=== PATIENT | female | born 1965 ===

== ENCOUNTER 2018-03-16 11:12 | Emergency (ER) | payer OTHER ==
[2018-03-16 11:29] VITALS: TEMP 98.3
[2018-03-16] MEDS ORDERED: Naproxen 500 MG TAB PO STA (12:20)
--- NOTE | 2018-03-16 12:25 | ED PDOC ---
HPI: Back Time Seen by Provider: 03/16/18 11:14 Chief Complaint (Nursing): Back Pain Chief Complaint (Provider): Left sided back pain after fall History Per: Patient History/Exam Limitations: no limitations Onset/Duration Of Symptoms: Days Current Symptoms Are (Timing): Still Present Quality Of Discomfort: Sharp Severity: Moderate Additional Complaint(s): 52 yo female with thyroid disease presents for evaluation of left middle back pain after a fall yesterday. Pt states that she slipped in bathroom and hit her back on toilet. No LOC. PT took motrin last night. No mediations today for pain. Pain localized. worse with movement or deep breathing. Past Medical History Reviewed: Historical Data, Nursing Documentation, Vital Signs Vital Signs: Last Vital Signs Temp 98.3 F 03/16/18 11:28 Pulse 74 03/16/18 11:28 Resp 18 03/16/18 11:28 BP 116/74 03/16/18 11:28 Pulse Ox 98 03/16/18 11:28 - Medical History PMH: Hypothyroidism - Surgical History Surgical History: No Surg Hx - Family History Family History: States: No Known Family Hx - Living Arrangements Living Arrangements: With Family - Social History Current smoker - smoking cessation education provided: No - Allergies Allergies/Adverse Reactions: Allergies Allergy/AdvReac Type Severity Reaction Status Date / Time No Known Allergies Allergy Verified 03/16/18 11:33 Review of Systems ROS Statement: Except As Marked, All Systems Reviewed And Found Negative Constitutional: Negative for: Fever, Chills Respiratory: Negative for: SOB with Exertion Musculoskeletal: Positive for: Back Pain Physical Exam - Reviewed Nursing Documentation Reviewed: Yes Vital Signs Reviewed: Yes - Physical Exam Appears: Positive for: Well, Non-toxic, No Acute Distress Head Exam: Positive for: ATRAUMATIC, NORMAL INSPECTION, NORMOCEPHALIC Skin: Positive for: Normal Color, Warm, DRY Eye Exam: Positive for: Normal appearance ENT: Positive for: Normal ENT Inspection Neck: Positive for: Normal Cardiovascular/Chest: Positive for: Regular Rate, Rhythm Respiratory: Positive for: Normal Breath Sounds. Negative for: Accessory Muscle Use, Respiratory Distress Back: Positive for: Normal Inspection Extremity: Positive for: Normal ROM, Tenderness (Left posterior ribs ). Negative for: Deformity, Swelling Neurologic/Psych: Positive for: Alert, Oriented - ECG O2 Sat by Pulse Oximetry: 98 Pulse Ox Interpretation: Normal Medical Decision Making Medical Decision Making: XR: Without acute abnormalities as read by radiologist. Disposition - Clinical Impression Clinical Impression: Rib contusion - Patient ED Disposition Is Patient to be Admitted: No - Disposition Referrals: Phillip Leonardo MD [Primary Care Provider] - Disposition: Routine/Home Disposition Time: 13:27 Condition: STABLE Instructions: Contusion (DC) Forms: [facility] (Arabic) Print Language: CONGOLESE
[2018-03-16] MEDS ORDERED: Naproxen 500 MG TAB PO ONE (12:37)
--- NOTE | 2018-03-16 12:56 | RAD ---
Date of service: 03/16/2018 PROCEDURE: Radiographs of the Chest and Left Ribs. HISTORY: left posterior rib pain after fall COMPARISON: None available. TECHNIQUE: Frontal radiograph of the chest and multiple oblique radiographs of the left ribs were obtained. FINDINGS: LEFT RIBS: No fracture or focal lesion visualized. LUNGS: Clear. Aorta is normal in size. Trachea is grossly midline. Clavicles are intact. Yet PLEURA: No pneumothorax or pleural fluid. CARDIOVASCULAR: Normal sized heart. No pulmonary vascular congestion. OTHER FINDINGS: None. IMPRESSION: Unremarkable radiographs of the chest and left ribs. No left rib fracture. No evidence of focal infiltrate or pneumothorax.
[2018-03-16 13:55] VITALS: BP 121/73; PULSE 76; RESP 16; O2SAT 97
== END 2018-03-16 13:55 | disposition home or self-care (01) ==
LOC: H.ER 11:12
DX: S20.219A Contusion of unspecified front wall of thorax, initial encounter (principal); W19.XXXA Unspecified fall, initial encounter; Y92.89 Other specified places as the place of occurrence of the external cause; E03.9 Hypothyroidism, unspecified